=== PATIENT | male | born 2000 | race Hispanic/Latino ===

== ENCOUNTER 2024-03-01 21:37 | Inpatient (IN) | payer OTHER ==
[~2024-03-01] VITALS: Ht 167.6 cm; Wt 105.9 kg
[2024-03-01 22:46] LABS: HEMATOCRIT 39.6 % (42.0-52.0); HEMOGLOBIN 13.2 g/dl (13.5-17.5); MEAN CORPUSCULAR HEMOGLOBIN 30.4 pg (27.0-33.0); MEAN CORPUSCULAR HGB CONC 33.3 g/dl (32.0-36.5); MEAN CORPUSCULAR VOLUME 91.2 fl (80.0-96.0); PLATELET COUNT, AUTOMATED 264 10^3/uL (150-450); RED BLOOD COUNT 4.34 10^6/uL (4.30-6.10); WHITE BLOOD COUNT 6.8 10^3/uL (4.0-10.0)
[2024-03-01] MEDS ORDERED: HOME MED LIST COMPLETE! XX SCH (22:55)
[2024-03-01 23:07] LABS: BARBITURATES URINE NEGATIVE (NEGATIVE); COCAINE METABOLITE URINE NEGATIVE (NEGATIVE)
[2024-03-01 23:08] LABS: AMPHETAMINES LEVEL URINE NEGATIVE (NEGATIVE); BENZODIAZEPINES URINE NEGATIVE (NEGATIVE); CANNABINOIDS URINE NEGATIVE (NEGATIVE); METHADONE URINE NEGATIVE (NEGATIVE); OPIATES URINE NEGATIVE (NEGATIVE); PHENCYCLIDINE URINE NEGATIVE (NEGATIVE)
[2024-03-01 23:13] LABS: ETHYL ALCOHOL (ETHANOL) 0.005 % (0.000-0.010)
[2024-03-01 23:15] LABS: ALKALINE PHOSPHATASE 95 U/L (46-116); ALT/SGPT 21 U/L (7.0-40); AST/SGOT 15 U/L (<34); BILIRUBIN,DIRECT 0.1 MG/DL (<0.4); BILIRUBIN,TOTAL 0.3 MG/DL (0.3-1.2); BLOOD UREA NITROGEN 11 MG/DL (9-23); CARBON DIOXIDE LEVEL 28 MMOL/L (20-31); CHLORIDE LEVEL 109 MMOL/L (98-107); CREATININE FOR GFR 0.86 MG/DL (0.70-1.30); GLOMERULAR FILTRATION RATE > 60.0 (>60); GLUCOSE, FASTING 86 MG/DL (60-100); SALICYLATE LEVEL < 3.0 MG/DL (<30); SODIUM LEVEL 143 MMOL/L (136-145)
[2024-03-02] MEDS ORDERED: MAALOX 30 ML SUSP *UDC PO PRN (00:25)
[2024-03-02] MEDS ORDERED: MOM 30ML SUSPENSION UDC PO PRN (00:25)
[2024-03-02] MEDS ORDERED: ACETAMINOPHEN TAB 650MG DOSE (2X325MG) PO PRN (00:25)
[2024-03-02] MEDS ORDERED: IBUPROFEN 400MG TAB PO PRN (00:25)
[2024-03-02] MEDS ORDERED: diphenhydrAMINE 25MG CAP PO PRN (00:25)
[2024-03-02 02:57] VITALS: BP 156/92; TEMP 98.5; O2SAT 100
[2024-03-02 06:25] VITALS: BP 121/60; TEMP 97; O2SAT 98
[2024-03-02] MEDS: SERTRALINE HCL 50 MG TAB PO SCH (10:45)
[2024-03-02] MEDS: traZODone 50 MG TAB PO PRN (23:02)
[2024-03-03 06:21] VITALS: BP 107/56; TEMP 96.9; O2SAT 100
[2024-03-03] MEDS ORDERED: SERTRALINE HCL 50 MG TAB PO SCH (09:00)
[2024-03-03 16:31] VITALS: BP 123/70; TEMP 97.7; O2SAT 100
[2024-03-04 06:12] VITALS: BP 115/58; TEMP 98.7; O2SAT 96
[2024-03-04 14:40] VITALS: BP 138/68; TEMP 98.1; O2SAT 100
[2024-03-05 06:22] VITALS: BP 118/60; TEMP 98.2; O2SAT 99
[2024-03-05] MEDS ORDERED: TRAZ-252 PO (08:21)
[2024-03-05] MEDS ORDERED: SERT50TA29 PO (08:21)
== END 2024-03-05 11:52 | disposition home or self-care (01) | DRG 881 ==
LOC: M ED 21:37 → M ED INP 03-02 00:22 → M PSY 03-02 02:42
PROVIDERS: ADMIT Psychiatry & Neurology Psychiatry; ATTEND Psychiatry & Neurology Psychiatry
DX: F32.A Depression, unspecified (principal); R45.851 Suicidal ideations; F32.9 Major depressive disorder, single episode, unspecified; Z63.5 Disruption of family by separation and divorce; G47.00 Insomnia, unspecified; Z59.89 Other problems related to housing and economic circumstances

== ENCOUNTER → 2025-01-12 | Outpatient (REF) | payer OTHER ==
[~2025-01-12] MED LIST: SERT50TA29 PO; TRAZ-252 PO
== END ==
LOC: M SMT 13:12
PROVIDERS: ATTEND Urology
DX: Z30.2 Encounter for sterilization (principal)

== ENCOUNTER → 2025-01-24 | Outpatient (CLI) | payer OTHER | LOC: M CARPUL 10:18 | PROVIDERS: ATTEND Student in an Organized Health Care Education/Training Program | DX: R06.00 Dyspnea, unspecified (principal) ==

== ENCOUNTER → 2025-02-08 | Outpatient (REF) | payer OTHER ==
[2025-02-08 15:40] LABS: SEMEN VOLUME 0.7 ml (2.0-5.0)
== END ==
LOC: M SMT 15:25
PROVIDERS: ATTEND Urology
DX: Z30.2 Encounter for sterilization (principal)

== ENCOUNTER → 2025-02-11 | Outpatient (REF) | payer OTHER ==
[2025-02-11 15:46] LABS: SEMEN APPEARANCE OPAQUE (OPAQUE); SEMEN VISCOSITY LIQUID (LIQUID); SEMEN VOLUME 2.8 ml (2.0-5.0); WBC CONCENTRATION >1 M/ml (<=1 M/ml)
== END ==
LOC: M SMT 15:27
PROVIDERS: ATTEND Urology
DX: Z98.52 Vasectomy status (principal)